=== PATIENT | male | born 1995 | race Two or more races ===

== ENCOUNTER 2021-11-01 09:13 | Emergency (ER) | payer OTHER ==
[2021-11-01 09:25] VITALS: BP 135/75; PULSE 74; TEMP 98; BMI 36.3
== END 2021-11-01 11:11 | disposition home or self-care (01) ==
LOC: JERFT 09:13
DX: Z02.79 Encounter for issue of other medical certificate (principal)
CPT/HCPCS: 99281-25

== ENCOUNTER 2022-08-13 10:33 | Emergency (ER) | payer OTHER ==
[2022-08-13 10:42] VITALS: BP 115/72; PULSE 73; RESP 20; TEMP 98.5; BMI 34.4
[2022-08-13] MEDS ORDERED: KETOROLAC TROMETHAMINE 30 MG/1 ML VIAL IM ONE (11:49)
[2022-08-13] MEDS ORDERED: KETOROLAC TROMETHAMINE 30 MG/1 ML VIAL ONE (12:14)
== END 2022-08-13 12:17 | disposition home or self-care (01) ==
LOC: JERFT 10:33
PROC: 3E0233Z Introduction of Anti-inflammatory into Muscle, Percutaneous Approach (ICD-10-PCS; principal; 2022-08-13)
DX: M54.50 Low back pain, unspecified (principal)
CPT/HCPCS: 96372; 99284-25

== ENCOUNTER 2023-03-16 16:27 | Emergency (ER) | payer OTHER ==
[2023-03-16 16:41] VITALS: BP 128/79; PULSE 94; RESP 18; TEMP 98.1; BMI 35.5
[2023-03-16] MEDS ORDERED: BACITRACIN ZINC 15 GM TUBE TOPICAL OINTMENT TP ONE (17:50)
[2023-03-16] MEDS ORDERED: BACITRACIN ZINC 15 GM TUBE TOPICAL OINTMENT ONE (17:57)
== END 2023-03-16 18:32 | disposition home or self-care (01) ==
LOC: JERFT 16:27 → JER 16:27 → JERFT 18:32
DX: T23.152A Burn of first degree of left palm, initial encounter (principal); M25.511 Pain in right shoulder; Y27.8XXA Contact with other hot objects, undetermined intent, initial encounter
CPT/HCPCS: 73030-TC-RT-FY; 99283-25